=== PATIENT | male | born 1970 | race Caucasian/White ===

== ENCOUNTER 2020-09-24 14:40 | Observation (INO) ==
[2020-09-24] MEDS ORDERED: Nitroglycerin 0.4 MG TAB.SUBL SL PRN (15:11)
[2020-09-24] MEDS ORDERED: Aspirin 325 MG TABLET PO ONE (15:11)
[2020-09-24 15:38] LABS: Basophils # 0.1 K/mcL (0.0-0.2); Basophils % 0.9 %; Eosinophils # 0.3 K/mcL (0.0-0.6); Hemoglobin 15.4 g/dL (12.9-16.9); Immature Granulocytes % 0.3 % (0-4); Lymphocytes # 2.1 K/mcL (0.6-4.6); Mean Corpuscular HGB Conc 33.5 g/dL (31.6-35.5); Mean Corpuscular Hemoglobin 29.5 pg (28.0-33.3); Mean Corpuscular Volume 88.1 fL (83.0-100.0); Mean Platelet Volume 9.7 fL (9.4-12.4); Monocytes % 9.8 %; Neutrophils # 6.5 K/mcL (1.6-8.9); Platelet Count 493 K/mcL (140-400); Red Blood Count 5.22 M/mcL (4.19-5.50); Red Cell Distribution Width 14.9 % (11.5-14.5); White Blood Count 10.1 K/mcL (4.3-11.1)
[2020-09-24 16:00] LABS: BUN/Creatinine Ratio 14 (6-26); Blood Urea Nitrogen 13 mg/dL (6-20); Calcium 9.5 mg/dL (8.6-10.3); Carbon Dioxide 21 mEq/L (23-29); Chloride 106 mEq/L (98-107); Glucose 98 mg/dL (70-105); Osmolality,Calculated 280 (280-300); Sodium 135 mEq/L (136-145); Troponin I < 0.03 ng/mL (< 0.04); eGFR For African Americans > 60 (> 60); eGFR For Non-African Americans > 60 (> 60)
[2020-09-24] MEDS ORDERED: Naloxone 0.4 MG/ML INJ IVP PRN (17:27)
[2020-09-24] MEDS ORDERED: Ondansetron 4 MG/2 ML VIAL IVP PRN (17:27)
[2020-09-24] MEDS ORDERED: Acetaminophen 325 MG TABLET PO PRN (17:27)
[2020-09-24] MEDS ORDERED: Perflutren Lipid Microsphere 1.3 ML in 0.9 % Sodium Chloride 8.7 ML IVP PRN (17:32)
[2020-09-24] MEDS: Nicotine 21 MG PATCH.TD24 TD SCH (21:27)
[2020-09-24] MEDS: Pregabalin 75 MG CAPSULE PO SCH (21:28)
[2020-09-25 05:37] LABS: Basophils # 0.1 K/mcL (0.0-0.2); Basophils % 0.9 %; Eosinophils # 0.4 K/mcL (0.0-0.6); Eosinophils % 4.8 %; Hematocrit 46.5 % (37.5-50.1); Hemoglobin 15.8 g/dL (12.9-16.9); Immature Granulocytes % 0.5 % (0-4); Lymphocytes # 2.2 K/mcL (0.6-4.6); Lymphocytes % 25.8 %; Mean Corpuscular Hemoglobin 29.8 pg (28.0-33.3); Mean Corpuscular Volume 87.6 fL (83.0-100.0); Mean Platelet Volume 9.6 fL (9.4-12.4); Monocytes # 0.9 K/mcL (0.0-1.3); Monocytes % 9.9 %; Platelet Count 504 K/mcL (140-400); Red Blood Count 5.31 M/mcL (4.19-5.50); Segmented Neutrophils % 58.1 %; White Blood Count 8.6 K/mcL (4.3-11.1)
[2020-09-25 05:58] LABS: Alanine Aminotransferase 14 Units/L (7-52); Albumin 4.4 g/dL (3.5-5.7); Albumin/Globulin Ratio 1.6 (1.1-2.2); Alkaline Phosphatase 109 Units/L (34-104); Aspartate Amino Transferase 17 Units/L (13-39); BUN/Creatinine Ratio 17 (6-26); Bilirubin,Indirect 0.5 mg/dL (0.0-1.0); Bilirubin,Total 0.5 mg/dL (0.3-1.0); Blood Urea Nitrogen 14 mg/dL (6-20); Calcium 9.6 mg/dL (8.6-10.3); Carbon Dioxide 21 mEq/L (23-29); Chloride 106 mEq/L (98-107); Glucose 99 mg/dL (70-105); Osmolality,Calculated 281 (280-300); Potassium 4.4 mEq/L (3.5-5.1); Sodium 135 mEq/L (136-145); Total Protein 7.2 g/dL (6.4-8.9); eGFR For African Americans > 60 (> 60); eGFR For Non-African Americans > 60 (> 60)
[2020-09-25 05:59] LABS: Chol/HDL Ratio 7.6 (0-4.9); Cholesterol 214 mg/dL (< 200); Globulin 2.8 g/dL (2.4-3.5); HDL Cholesterol 28 mg/dL (40-59); LDL Cholesterol,Calculated 156 mg/dL (< 100); Triglycerides 150 mg/dL (< 150)
[2020-09-25] MEDS ORDERED: Regadenoson 0.4 MG/5 ML SYRINGE IVP ONE (06:24)
[2020-09-25] MEDS: *HR* Enoxaparin 40 MG/0.4 ML SYRINGE SQ SCH (06:39)
[2020-09-25 08:10] LABS: Estimated Average Glucose 108 mg/dl; Hemoglobin A1C 5.4 %
[2020-09-25] MEDS: Pregabalin 75 MG CAPSULE PO SCH ×2 (11:12→21:09)
[2020-09-25] MEDS: Aspirin 81 MG TAB.CHEW PO SCH (11:47)
[2020-09-25] MEDS: Nicotine 21 MG PATCH.TD24 TD SCH (11:54)
[2020-09-25] MEDS: Isosorbide MONOnitrate (24 HR) 30 MG TAB.ER.24H PO SCH (17:14)
[2020-09-26 03:44] LABS: BUN/Creatinine Ratio 24 (6-26); Blood Urea Nitrogen 21 mg/dL (6-20); Calcium 9.5 mg/dL (8.6-10.3); Carbon Dioxide 23 mEq/L (23-29); Chloride 104 mEq/L (98-107); Glucose 99 mg/dL (70-105); Osmolality,Calculated 283 (280-300); Potassium 3.9 mEq/L (3.5-5.1); Sodium 135 mEq/L (136-145); eGFR For African Americans > 60 (> 60); eGFR For Non-African Americans > 60 (> 60)
[2020-09-26] MEDS: *HR* Enoxaparin 40 MG/0.4 ML SYRINGE SQ SCH (06:22)
[2020-09-26 06:34] VITALS: BP 102/62
[2020-09-26] MEDS: Isosorbide MONOnitrate (24 HR) 30 MG TAB.ER.24H PO SCH (08:44)
[2020-09-26] MEDS: Aspirin 81 MG TAB.CHEW PO SCH (08:44)
[2020-09-26] MEDS: Pregabalin 75 MG CAPSULE PO SCH (08:44)
[2020-09-26] MEDS: Nicotine 21 MG PATCH.TD24 TD SCH (08:45)
== END 2020-09-26 10:48 | disposition home or self-care (01) ==
LOC: EMEROOARM 14:40 → 3BNU 14:40 → SUATTDRO 18:24 → 3BNU 20:07
PROVIDERS: ADMIT Internal Medicine; ATTEND Internal Medicine